=== PATIENT | female | born 1980 | race Caucasian/White ===

== ENCOUNTER 2017-01-30 13:00 | Outpatient (CLI) | payer MEDICAID, OTHER ==
[2014-12-16 00:17] VITALS: BP 118/68
[2017-01-30 13:28] LABS: BASOPHILS % 0.4 (0.0-1.5); EOSINOPHILS % 4.2 % (0.0-6.8); MEAN CORPUSCULAR HEMOGLOBIN 32.4 pg (28.0-34.0); MONOCYTES % 4.6 % (0.0-11.0); NEUTROPHILS # 7.8 # k/uL (1.4-7.7)
== END 2017-01-30 13:01 ==
LOC: LAB 13:00
PROVIDERS: ATTEND Obstetrics & Gynecology
DX: D72.829 Elevated white blood cell count, unspecified (principal)
CPT/HCPCS: 36415; 85025